=== PATIENT | female | born 2000 | race Caucasian/White ===

== ENCOUNTER 2018-06-18 08:12 | Emergency (ER) | payer OTHER ==
[2018-06-18 08:28] VITALS: BP 126/82
--- NOTE | 2018-06-18 08:38 | UC ---
Complaint Female HPI - HPI Summary HPI Summary: Pt presents with c/o sudden onset of urinary urgency, frequency and dysuria X 1 day. - History Of Current Complaint Stated Complaint: URINARY Time Seen by Provider: 06/18/18 08:24 Hx Obtained From: Patient Hx Last Menstrual Period: 05/30/18 ?: No - pt using bcp, and did not allow menses Onset/Duration: Sudden Onset, Lasting Days Timing: Constant Severity Initially: Mild Severity Currently: Mild Pain Intensity: 0 Character: Dull, Burning Aggravating Factor(s): Urination Alleviating Factor(s): Nothing Associated Signs And Symptoms: Positive: Negative - Risk Factors Ectopic Risk Factor: Negative Ovarian Torsion Risk Factor: Reproductive Age - Allergies/Home Medications Allergies/Adverse Reactions: Allergies Allergy/AdvReac Type Severity Reaction Status Date / Time Penicillins Allergy Unknown Unknown Verified 06/18/18 08:28 Reaction Details Home Medications: Home Medications Norethindrone AC-Eth Estradiol [Microgestin 21 1.5-30 Tab] 1 each PO DAILY 06/18 [History Confirmed 06/18/18] PMH/Surg Hx/FS Hx/Imm Hx Previously Healthy: Yes - Surgical History Surgical History: None - Family History Known Family History: Positive: Cardiac Disease - Social History Occupation: Student - [employer] Lives: Dormitory/Roommates Alcohol Use: Occasionally Substance Use Type: None Smoking Status (MU): Never Smoked Tobacco Have You Smoked in the Last Year: No - Immunization History Vaccination Up to Date: Yes Review of Systems All Other Systems Reviewed And Are Negative: Yes Constitutional: Positive: Negative Skin: Positive: Negative Eyes: Positive: Negative ENT: Positive: Negative Respiratory: Positive: Negative Cardiovascular: Positive: Negative Gastrointestinal: Positive: Negative Genitourinary: Positive: Dysuria, Frequency, Urgency Motor: Positive: Negative Neurovascular: Positive: Negative Musculoskeletal: Positive: Negative Neurological: Positive: Negative Psychological: Positive: Negative Is Patient Immunocompromised?: No Physical Exam Triage Information Reviewed: Yes Appearance: Well-Appearing Vital Signs: Initial Vital Signs Temp 98.2 F 06/18/18 08:25 Pulse 98 06/18/18 08:25 Resp 14 06/18/18 08:25 BP 126/82 06/18/18 08:25 Pulse Ox 99 06/18/18 08:25 Vital Signs Reviewed: Yes Eye Exam: Normal ENT Exam: Normal Dental Exam: Normal Neck exam: Normal Respiratory Exam: Normal Cardiovascular Exam: Normal Abdominal Exam: Normal Abdomen Description: Positive: Nontender Musculoskeletal Exam: Normal Neurological Exam: Normal Psychological Exam: Normal Skin Exam: Normal Complaint Female Dx - Course Course Of Treatment: Pt is unsure of her reaction to pcn. I asked if it was anaphylactic-pt denied this. - Differential Dx/Diagnosis Differential Diagnosis/HQI/PQRI: Urinary Tract Infection Provider Diagnosis: UTI (urinary tract infection) Discharge - Sign-Out/Discharge Documenting (check all that apply): Patient Departure All imaging exams completed and their final reports reviewed: No Studies - Discharge Plan Condition: Stable Disposition: HOME Prescriptions: Cephalexin CAP* [Keflex 500 CAP*] 500 mg PO Q8H #21 cap Phenazopyridine TAB* [Pyridium 100 mg TAB*] 100 mg PO Q8H #3 tab Patient Education Materials: Urinary Tract Infection in Women (ED) Referrals: [facility] [Outside] - If Needed No Primary Care Phys,NOPCP [Primary Care Provider] - - Billing Disposition and Condition Condition: STABLE Disposition: Home
== END 2018-06-18 08:45 | disposition home or self-care (01) ==
LOC: UCCORT 08:12
DX: N39.0 Urinary tract infection, site not specified (principal); B96.4 Proteus (mirabilis) (morganii) as the cause of diseases classified elsewhere; Z88.0 Allergy status to penicillin
CPT/HCPCS: 81003; 87086; 99202; G0463